=== PATIENT | female | born 1945 | race Caucasian/White ===

== ENCOUNTER 2022-12-06 07:01 | Inpatient (IN) ==
[2022-12-06] MEDS ORDERED: ASPIRIN CHEW 81 MG TABLET PO ONE (07:35)
[2022-12-06] MEDS ORDERED: HEPARIN 5,000 UNIT/1 ML VIAL ONE (07:35)
[2022-12-06] MEDS ORDERED: TICAGRELOR 90 MG TABLET ONE (07:35)
[2022-12-06] MEDS ORDERED: HEPARIN 5,000 UNIT/1 ML VIAL IV ONE (07:35)
[2022-12-06] MEDS ORDERED: ASPIRIN 325 MG TABLET PO STA (07:35)
[2022-12-06] MEDS ORDERED: TICAGRELOR 90 MG TABLET PO STA (07:35)
[2022-12-06] MEDS ORDERED: ONDANSETRON 4 MG/2 ML VIAL IV STA (07:35)
[2022-12-06] MEDS ORDERED: LABETALOL 20 MG/4 ML SYRINGE IV ONE (07:46)
[2022-12-06] MEDS ORDERED: MORPHINE 2 MG/1 ML SYRINGE ONE (07:46)
[2022-12-06 07:52] LABS: Basophils # 0.1 10*3/uL (0.0-0.2); Basophils % 0.5 % (0.0-0.8); Eosinophils # 0.2 10*3/uL (0.0-0.87); Eosinophils % 1.5 % (0.00-10.9); Hematocrit 35.1 VOL% (35.7-47.0); Hemoglobin 11.8 GM/DL (12.0-16.0); Immature Granulocytes % 0.6 %; Immature Granulocytes Absolute 0.09 #; Lymphocytes # 2.9 10*3/uL (1.4-4.0); Lymphocytes % 19.2 % (21.3-54.2); Mean Corpuscular HGB Conc 33.6 GM/DL (32-36); Mean Corpuscular Volume 91.9 FL (87-102); Mean Platelet Volume 10.7 FL (9.6-12.0); Monocytes # 0.9 10*3/uL (0.11-0.8); Monocytes % 6.2 % (1.7-12.7); Platelet Count 396 T/CUMM (130-400); Red Blood Count 3.82 MC/CUMM (3.8-5.5); Red Cell Distribution Width 13.2 % (9.3-17.3); White Blood Count 14.9 T/CUMM (4-12)
[2022-12-06] MEDS ORDERED: MORPHINE 2 MG/1 ML SYRINGE IV STA (07:56)
[2022-12-06] MEDS ORDERED: LABETALOL 20 MG/4 ML SYRINGE IV STA (07:57)
[2022-12-06] MEDS ORDERED: MORPHINE 2 MG/1 ML SYRINGE IV PRN (07:58)
[2022-12-06] MEDS ORDERED: MAGNESIUM SULF RIDER 2 GM/50 ML PREMIX IV PRN (07:58)
[2022-12-06] MEDS ORDERED: MAGNESIUM SULF RIDER 4 GM/100 ML PREMIX IV PRN (07:58)
[2022-12-06] MEDS ORDERED: SODIUM CHLORIDE 0.45% 1,000 ML IV SCH (08:00)
[2022-12-06 08:03] LABS: Calcium 9.3 MG/DL (8.5-10.1); Osmolality,Calculated 280.5 MOS/KG (273-304); Potassium 3.6 MMOL/L (3.5-5.1)
[2022-12-06] MEDS ORDERED: BUPIVACAINE 0.25% 50 ML VIAL ONE (08:07)
[2022-12-06] MEDS ORDERED: HYDROmorphone 1 MG/1 ML SYRINGE ONE (08:16)
[2022-12-06] MEDS ORDERED: MIDAZOLAM 2 MG/2 ML VIAL ONE (08:16)
[2022-12-06] MEDS ORDERED: HEPARIN/NACL 0.9% 2 UNITS/ML 2,000 UNIT/1,000 ML BAG IV ONE (08:16)
[2022-12-06] MEDS ORDERED: NITROGLYCERIN DRIP 50 MG/250 ML BOTTLE IV ONE (09:00)
[2022-12-06] MEDS ORDERED: ZALEPLON 5 MG CAPSULE PO PRN (09:28)
[2022-12-06] MEDS ORDERED: NITROGLYCERIN SL 0.4 MG TABLET SL PRN (09:28)
[2022-12-06] MEDS: SODIUM CHLORIDE 0.9% 1,000 ML IV SCH ×2 (09:45→19:45)
[2022-12-06 10:57] LABS: CKMB % 25.35 %
[2022-12-06 11:00] LABS: High Sensitive Troponin I* 8678.8 ng/L (0-54)
[2022-12-06] MEDS: PANTOPRAZOLE 40 MG TABLET PO SCH (11:35)
[2022-12-06] MEDS: RIFAXIMIN 550 MG TABLET PO SCH ×2 (15:25→20:57)
[2022-12-06 16:48] LABS: CKMB % 26.26 %
[2022-12-06] MEDS: AMITRIPTYLINE 10 MG TABLET PO SCH (20:56)
[2022-12-06] MEDS: PREGABALIN 75 MG CAPSULE PO SCH (20:57)
[2022-12-06 22:24] LABS: CKMB % 23.23 %
[2022-12-06 22:27] LABS: High Sensitive Troponin I* 33643.8 ng/L (0-54)
[2022-12-07 04:04] LABS: CKMB % 20.77 %
[2022-12-07 04:10] LABS: High Sensitive Troponin I* 24550.2 ng/L (0-54)
[2022-12-07 04:14] LABS: Calcium 7.6 MG/DL (8.5-10.1); Osmolality,Calculated 282.4 MOS/KG (273-304); Potassium 3.1 MMOL/L (3.5-5.1); Risk Ratio 5.57
[2022-12-07] MEDS: LEVOTHYROXINE 125 MCG TABLET PO SCH (05:47)
[2022-12-07] MEDS ORDERED: POTASSIUM CHLORIDE 20 MEQ TABLET PO ONE ×2 (08:00)
[2022-12-07] MEDS: PANTOPRAZOLE 40 MG TABLET PO SCH (08:10)
[2022-12-07] MEDS: NEBIVOLOL 5 MG TABLET PO SCH (08:55)
[2022-12-07] MEDS: ASPIRIN EC 81 MG TABLET PO SCH (08:55)
[2022-12-07] MEDS: CETIRIZINE 10 MG TABLET PO SCH (08:55)
[2022-12-07] MEDS: FOLIC ACID 1 MG TABLET PO SCH (08:55)
[2022-12-07] MEDS: DULoxetine 30 MG CAPSULE PO SCH (08:55)
[2022-12-07] MEDS: EZETIMIBE 10 MG TABLET PO SCH (08:55)
[2022-12-07] MEDS: RIFAXIMIN 550 MG TABLET PO SCH ×3 (08:55→20:15)
[2022-12-07] MEDS: LOSARTAN 50 MG TABLET PO SCH (10:10)
[2022-12-07] MEDS: AMITRIPTYLINE 10 MG TABLET PO SCH (20:14)
[2022-12-07] MEDS: PREGABALIN 75 MG CAPSULE PO SCH (20:15)
[2022-12-08 04:01] LABS: Calcium 8.1 MG/DL (8.5-10.1); Osmolality,Calculated 280.4 MOS/KG (273-304); Potassium 3.5 MMOL/L (3.5-5.1)
[2022-12-08] MEDS: LEVOTHYROXINE 125 MCG TABLET PO SCH (06:08)
[2022-12-08] MEDS: NEBIVOLOL 5 MG TABLET PO SCH (08:31)
[2022-12-08] MEDS: CETIRIZINE 10 MG TABLET PO SCH (08:31)
[2022-12-08] MEDS: ASPIRIN EC 81 MG TABLET PO SCH (08:31)
[2022-12-08] MEDS: RIFAXIMIN 550 MG TABLET PO SCH ×3 (08:31→20:41)
[2022-12-08] MEDS: DULoxetine 30 MG CAPSULE PO SCH (08:31)
[2022-12-08] MEDS: FOLIC ACID 1 MG TABLET PO SCH (08:31)
[2022-12-08] MEDS: PANTOPRAZOLE 40 MG TABLET PO SCH (08:31)
[2022-12-08] MEDS: EZETIMIBE 10 MG TABLET PO SCH (08:31)
[2022-12-08] MEDS: LOSARTAN 50 MG TABLET PO SCH (08:32)
[2022-12-08] MEDS ORDERED: POTASSIUM CHLORIDE 20 MEQ TABLET PO ONE (09:50)
[2022-12-08] MEDS: TICAGRELOR 90 MG TABLET PO SCH ×2 (10:20→20:41)
[2022-12-08] MEDS ORDERED: BISMUTH SUBSALICYLATE 30 ML/524 MG 240 ML/BOTTLE PO PRN (11:10)
[2022-12-08] MEDS: ACETAMINOPHEN 325 MG TABLET PO PRN ×2 (16:49→22:10)
[2022-12-08 17:15] VITALS: BP 144/83
[2022-12-08] MEDS: PREGABALIN 75 MG CAPSULE PO SCH (20:41)
[2022-12-08] MEDS: AMITRIPTYLINE 10 MG TABLET PO SCH (20:41)
[2022-12-09] MEDS: ACETAMINOPHEN 325 MG TABLET PO PRN ×3 (03:52→20:14)
[2022-12-09 04:21] LABS: Basophils # 0.1 10*3/uL (0.0-0.2); Basophils % 0.4 % (0.0-0.8); Eosinophils # 0.4 10*3/uL (0.0-0.87); Eosinophils % 2.6 % (0.00-10.9); Hematocrit 30.5 VOL% (35.7-47.0); Immature Granulocytes % 0.7 %; Immature Granulocytes Absolute 0.11 #; Lymphocytes # 2.1 10*3/uL (1.4-4.0); Lymphocytes % 12.9 % (21.3-54.2); Mean Corpuscular HGB Conc 32.8 GM/DL (32-36); Mean Platelet Volume 10.5 FL (9.6-12.0); Monocytes # 1.2 10*3/uL (0.11-0.8); Monocytes % 7.6 % (1.7-12.7); Neutrophils % 75.8 % (38.7-73.9); Platelet Count 348 T/CUMM (130-400); Red Blood Count 3.35 MC/CUMM (3.8-5.5); Red Cell Distribution Width 13.3 % (9.3-17.3); White Blood Count 16.3 T/CUMM (4-12)
[2022-12-09 04:46] LABS: Calcium 8.5 MG/DL (8.5-10.1); Osmolality,Calculated 275.8 MOS/KG (273-304); Potassium 3.5 MMOL/L (3.5-5.1)
[2022-12-09] MEDS: LEVOTHYROXINE 125 MCG TABLET PO SCH (06:11)
[2022-12-09] MEDS: PANTOPRAZOLE 40 MG TABLET PO SCH (08:15)
[2022-12-09] MEDS: FOLIC ACID 1 MG TABLET PO SCH (08:16)
[2022-12-09] MEDS: CETIRIZINE 10 MG TABLET PO SCH (08:16)
[2022-12-09] MEDS: ASPIRIN EC 81 MG TABLET PO SCH (08:17)
[2022-12-09] MEDS: RIFAXIMIN 550 MG TABLET PO SCH ×3 (08:17→20:02)
[2022-12-09] MEDS: DULoxetine 30 MG CAPSULE PO SCH (08:17)
[2022-12-09] MEDS: LOSARTAN 50 MG TABLET PO SCH (08:17)
[2022-12-09] MEDS: TICAGRELOR 90 MG TABLET PO SCH ×2 (08:17→20:02)
[2022-12-09] MEDS: NEBIVOLOL 5 MG TABLET PO SCH (08:17)
[2022-12-09] MEDS: EZETIMIBE 10 MG TABLET PO SCH (10:21)
[2022-12-09] MEDS: IBUPROFEN 400 MG TABLET PO PRN ×2 (10:52→20:01)
[2022-12-09] MEDS: AZITHROMYCIN INJ 500 MG in SODIUM CHLORIDE 0.9% 250 ML IV SCH (11:30)
[2022-12-09] MEDS: cefTRIAXone 1,000 MG in SODIUM CHLORIDE 0.9% 100 ML IV SCH (11:30)
[2022-12-09 15:07] LABS: Bacteria,Urine Occasional /HPF (Few); Hyaline Casts,Urine 2 /LPF (0-3); Mucus,Urine Many /LPF (Occasional); RBC,Urine 1 /HPF (0-4); Squamous Epithelial Cell,Urine Occasional /HPF (0-10)
[2022-12-09 15:10] LABS: Urine Appearance Clear (Clear); Urine Color Yellow (Yellow)
[2022-12-09 15:11] LABS: Bilirubin,Urine Negative (Negative); Blood, Urine Negative (Negative); Glucose,Urine (UA) Negative (Negative); Ketones,Urine Negative (Negative); Nitrite,Urine Negative (Negative); Protein,Urine Negative (Negative); Urine Urobilinogen 0.2 eU/dL (<2.0)
[2022-12-09] MEDS: PREGABALIN 75 MG CAPSULE PO SCH (20:02)
[2022-12-09] MEDS: AMITRIPTYLINE 10 MG TABLET PO SCH (20:02)
[2022-12-10] MEDS: ACETAMINOPHEN 325 MG TABLET PO PRN ×4 (02:48→20:24)
[2022-12-10 04:26] LABS: Basophils # 0.1 10*3/uL (0.0-0.2); Basophils % 0.6 % (0.0-0.8); Eosinophils # 0.4 10*3/uL (0.0-0.87); Eosinophils % 2.5 % (0.00-10.9); Hematocrit 32.3 VOL% (35.7-47.0); Hemoglobin 10.7 GM/DL (12.0-16.0); Immature Granulocytes % 0.6 %; Lymphocytes # 2.1 10*3/uL (1.4-4.0); Lymphocytes % 13.5 % (21.3-54.2); Mean Corpuscular HGB Conc 33.1 GM/DL (32-36); Mean Corpuscular Volume 92.8 FL (87-102); Mean Platelet Volume 10.6 FL (9.6-12.0); Monocytes # 1.3 10*3/uL (0.11-0.8); Monocytes % 8.2 % (1.7-12.7); Neutrophils % 74.6 % (38.7-73.9); Platelet Count 357 T/CUMM (130-400); Red Blood Count 3.48 MC/CUMM (3.8-5.5); Red Cell Distribution Width 13.4 % (9.3-17.3); White Blood Count 15.8 T/CUMM (4-12)
[2022-12-10 04:45] LABS: Calcium 8.8 MG/DL (8.5-10.1); Osmolality,Calculated 273.8 MOS/KG (273-304); Potassium 3.3 MMOL/L (3.5-5.1)
[2022-12-10] MEDS: LEVOTHYROXINE 125 MCG TABLET PO SCH (06:42)
[2022-12-10] MEDS: TICAGRELOR 90 MG TABLET PO SCH ×2 (08:03→20:24)
[2022-12-10] MEDS: DULoxetine 30 MG CAPSULE PO SCH (08:03)
[2022-12-10] MEDS: FOLIC ACID 1 MG TABLET PO SCH (08:03)
[2022-12-10] MEDS: NEBIVOLOL 5 MG TABLET PO SCH (08:03)
[2022-12-10] MEDS: PANTOPRAZOLE 40 MG TABLET PO SCH (08:03)
[2022-12-10] MEDS: LOSARTAN 50 MG TABLET PO SCH (08:03)
[2022-12-10] MEDS: ASPIRIN EC 81 MG TABLET PO SCH (08:03)
[2022-12-10] MEDS: CETIRIZINE 10 MG TABLET PO SCH (08:04)
[2022-12-10] MEDS: RIFAXIMIN 550 MG TABLET PO SCH ×3 (08:04→20:24)
[2022-12-10] MEDS: EZETIMIBE 10 MG TABLET PO SCH (08:04)
[2022-12-10] MEDS ORDERED: traMADol 50 MG TABLET PO PRN (08:05)
[2022-12-10] MEDS ORDERED: POTASSIUM CHLORIDE 20 MEQ TABLET PO ONE (09:59)
[2022-12-10] MEDS: AZITHROMYCIN INJ 500 MG in SODIUM CHLORIDE 0.9% 250 ML IV SCH (11:00)
[2022-12-10] MEDS: cefTRIAXone 1,000 MG in SODIUM CHLORIDE 0.9% 100 ML IV SCH (11:20)
[2022-12-10] MEDS: METHOCARBAMOL 750 MG TABLET PO PRN (11:45)
[2022-12-10] MEDS: ONDANSETRON 4 MG/2 ML VIAL IV PRN ×2 (12:14→20:43)
[2022-12-10] MEDS ORDERED: METHOCARBAMOL 750 MG TABLET PO ONE (15:57)
[2022-12-10] MEDS ORDERED: traMADol 50 MG TABLET PO ONE (15:59)
[2022-12-10] MEDS: AMITRIPTYLINE 10 MG TABLET PO SCH (20:24)
[2022-12-10] MEDS: PREGABALIN 75 MG CAPSULE PO SCH (20:24)
[2022-12-11] MEDS: METHOCARBAMOL 750 MG TABLET PO PRN (04:14)
[2022-12-11] MEDS: ACETAMINOPHEN 325 MG TABLET PO PRN ×2 (04:15→13:38)
[2022-12-11 05:01] LABS: Basophils # 0.1 10*3/uL (0.0-0.2); Basophils % 0.7 % (0.0-0.8); Eosinophils # 0.5 10*3/uL (0.0-0.87); Eosinophils % 4.3 % (0.00-10.9); Hematocrit 32.7 VOL% (35.7-47.0); Hemoglobin 10.7 GM/DL (12.0-16.0); Immature Granulocytes % 0.5 %; Immature Granulocytes Absolute 0.06 #; Lymphocytes # 2.3 10*3/uL (1.4-4.0); Lymphocytes % 19.9 % (21.3-54.2); Mean Corpuscular HGB Conc 32.7 GM/DL (32-36); Mean Corpuscular Volume 93.7 FL (87-102); Mean Platelet Volume 10.4 FL (9.6-12.0); Monocytes % 8.9 % (1.7-12.7); Neutrophils % 65.7 % (38.7-73.9); Platelet Count 387 T/CUMM (130-400); Red Blood Count 3.49 MC/CUMM (3.8-5.5); Red Cell Distribution Width 13.6 % (9.3-17.3); White Blood Count 11.6 T/CUMM (4-12)
[2022-12-11 05:23] LABS: Calcium 8.1 MG/DL (8.5-10.1); Osmolality,Calculated 277.7 MOS/KG (273-304); Potassium 3.6 MMOL/L (3.5-5.1)
[2022-12-11] MEDS: LEVOTHYROXINE 125 MCG TABLET PO SCH (06:23)
[2022-12-11] MEDS: TICAGRELOR 90 MG TABLET PO SCH (09:13)
[2022-12-11] MEDS: DULoxetine 30 MG CAPSULE PO SCH (09:13)
[2022-12-11] MEDS: FOLIC ACID 1 MG TABLET PO SCH (09:13)
[2022-12-11] MEDS: LOSARTAN 50 MG TABLET PO SCH (09:13)
[2022-12-11] MEDS: PANTOPRAZOLE 40 MG TABLET PO SCH (09:13)
[2022-12-11] MEDS: EZETIMIBE 10 MG TABLET PO SCH (09:13)
[2022-12-11] MEDS: CETIRIZINE 10 MG TABLET PO SCH (09:14)
[2022-12-11] MEDS: NEBIVOLOL 5 MG TABLET PO SCH (09:14)
[2022-12-11] MEDS: RIFAXIMIN 550 MG TABLET PO SCH (09:14)
[2022-12-11] MEDS: ASPIRIN EC 81 MG TABLET PO SCH (09:14)
[2022-12-11] MEDS: cefTRIAXone 1,000 MG in SODIUM CHLORIDE 0.9% 100 ML IV SCH (11:08)
[2022-12-11] MEDS: AZITHROMYCIN INJ 500 MG in SODIUM CHLORIDE 0.9% 250 ML IV SCH (11:08)
== END 2022-12-11 01:45 | disposition home or self-care (01) | DRG 280 ==
LOC: EDUNIT# → EDBD → N.ED 07:01 → N.EDINP 07:58 → N.ICU 09:38
PROVIDERS: ADMIT Internal Medicine Cardiovascular Disease; ATTEND Internal Medicine Cardiovascular Disease
PROC: CLCCHCL (ICD-10-PCS; 2022-12-06 08:15)